=== PATIENT | female | born 2000 | race Caucasian/White ===

== ENCOUNTER 2018-09-11 15:50 | Emergency (ER) | payer OTHER ==
[2018-09-11 16:01] VITALS: O2SAT 99
--- NOTE | 2018-09-11 16:20 | ED PDOC ---
HPI: General Adult Time Seen by Provider: 09/11/18 16:09 Chief Complaint (Nursing): Abdominal Pain Chief Complaint (Provider): with abdominal pain History Per: Patient Additional Complaint(s): 18-year-old female, (1 ) presents with right-sided abdominal pain that started yesterday. Patient describes the pain as sharp, shooting and intermittent. She denies any dysuria or hematuria, no vaginal bleeding, fever or chills. OB: Dr. Marsha Boyd Past Medical History Reviewed: Historical Data, Nursing Documentation, Vital Signs Vital Signs: Last Vital Signs Temp 98.2 F 09/11/18 15:59 Pulse 112 H 09/11/18 15:59 Resp 18 09/11/18 15:59 BP 122/68 09/11/18 15:59 Pulse Ox 99 09/11/18 15:59 - Medical History PMH: Asthma - Surgical History Surgical History: No Surg Hx - Family History Family History: States: No Known Family Hx - Living Arrangements Living Arrangements: With Family - Social History Current smoker - smoking cessation education provided: No Alcohol: None Drugs: Denies - Home Medications Home Medications: Ambulatory Orders Medication Instructions Recorded No Known Home Med 06/21/18 - Allergies Allergies/Adverse Reactions: Allergies Allergy/AdvReac Type Severity Reaction Status Date / Time No Known Allergies Allergy Verified 06/21/18 17:13 Review of Systems ROS Statement: Except As Marked, All Systems Reviewed And Found Negative Constitutional: Negative for: Fever, Chills, Weakness Cardiovascular: Negative for: Chest Pain Respiratory: Negative for: Shortness of Breath Gastrointestinal: Positive for: Abdominal Pain. Negative for: Nausea, Vomiting, Diarrhea, Constipation Genitourinary Female: Positive for: Pelvic Pain. Negative for: Dysuria, Vaginal Discharge, Vaginal Bleeding Physical Exam - Reviewed Nursing Documentation Reviewed: Yes Vital Signs Reviewed: Yes - Physical Exam Appears: Positive for: Well, Non-toxic, No Acute Distress Skin: Positive for: Normal Color. Negative for: Rash Eye Exam: Positive for: Normal appearance Cardiovascular/Chest: Positive for: Regular Rate, Rhythm Respiratory: Positive for: Normal Breath Sounds. Negative for: Respiratory Distress Gastrointestinal/Abdominal: Positive for: Other (gravid abdomen with mild tenderness to right lower quadrant, no rebound, no guarding) Back: Negative for: L CVA Tenderness, R CVA Tenderness Extremity: Positive for: Normal ROM Neurologic/Psych: Positive for: Alert, Oriented - Laboratory Results Urine dip results: Negative for: Leukocyte Esterase, Blood, Nitrate, Ketones, Glucose, Bilirubin, Protein - ECG O2 Sat by Pulse Oximetry: 99 Pulse Ox Interpretation: Normal - Other Rad OB US X-Ray: Read By Radiologist X-Ray Interpretation: see below Medical Decision Making Medical Decision Makin -year-old female with abdominal pain Plan: PO tylenol OB US Urine dip US: UTERUS: Single live intrauterine fetus in breech presentation. BPD: 3.8 cm corresponding to 17 weeks and 3 days of gestational age. HC: 13.6 cm corresponding to 17 weeks and 0 days of gestational age. AC: 10.9 cm corresponding to 16 weeks and 6 days of gestational age. FL: 2.5 cm corresponding to 17 weeks and 5 days of gestational age. Heart rate: 154 bpm. age (Ultrasound estimated): 17 weeks and 2 days. Rachael-gestational hemorrhage: None. Date of delivery (Ultrasound estimated) : 02/17/2019. Placenta is fundal and posterior. CERVIX: Measures 5.3 cm. Long and closed. No cervical abnormality seen. RIGHT OVARY: Not visualized. LEFT OVARY: Not visualized. FREE FLUID: None. OTHER FINDINGS: None. IMPRESSION: Single intrauterine fetus in breech presentation with mean gestational age of 17 weeks and 2 days. The estimated date of delivery by ultrasound is 02/17/2019. Please note this is a limited OB ultrasound performed on an emergent basis. Dedicated anatomic survey is recommended. Patient is aware of diagnostic testing results, all questions answered. She was instructed to follow-up with her OB and is aware she can return to ED any time if acutely worse. Disposition - Clinical Impression Clinical Impression: Abdominal pain during - Patient ED Disposition Is Patient to be Admitted: No Counseled Patient/Family Regarding: Studies Performed, Diagnosis, Need For Followup - Disposition Referrals: Manpreet Boyd MD [Staff Provider] - Disposition: Routine/Home Disposition Time: 19:09 Condition: STABLE Additional Instructions: Drink plenty of fluids and take Tylenol as needed. Follow-up with your OB in 2-3 days or return any time if acutely worse. Instructions: - [facility] [employer] Forms: [facility] ([place]istani)
--- NOTE | 2018-09-11 19:03 | US ---
Date of service: 09/11/2018 PROCEDURE: OB Pelvic Ultrasound HISTORY: 17 weeks, right side pain COMPARISON: None available. FINDINGS: UTERUS: Single live intrauterine fetus in breech presentation. BPD: 3.8 cm corresponding to 17 weeks and 3 days of gestational age. HC: 13.6 cm corresponding to 17 weeks and 0 days of gestational age. AC: 10.9 cm corresponding to 16 weeks and 6 days of gestational age. FL: 2.5 cm corresponding to 17 weeks and 5 days of gestational age. Heart rate: 154 bpm. age (Ultrasound estimated): 17 weeks and 2 days Rachael-gestational hemorrhage: None. Date of delivery (Ultrasound estimated) : 02/17/2019 Placenta is fundal and posterior. CERVIX: Measures 5.3 cm. Long and closed. No cervical abnormality seen. RIGHT OVARY: Not visualized. LEFT OVARY: Not visualized. FREE FLUID: None. OTHER FINDINGS: None. IMPRESSION: Single intrauterine fetus in breech presentation with mean gestational age of 17 weeks and 2 days. The estimated date of delivery by ultrasound is 02/17/2019. Please note this is a limited OB ultrasound performed on an emergent basis. Dedicated anatomic survey is recommended.
[2018-09-11 19:29] VITALS: BP 107/71; PULSE 90; RESP 17; TEMP 98.4
== END 2018-09-11 19:28 | disposition home or self-care (01) ==
LOC: H.ER 15:50
DX: O26.892 Other specified pregnancy related conditions, second trimester (principal); Z3A.17 17 weeks gestation of pregnancy

== ENCOUNTER 2019-02-15 05:08 | Inpatient (IN) | payer MEDICAID ==
[2019-02-15 06:34] VITALS: BMI 30.1
[2019-02-15] MEDS ORDERED: Lactated Ringer's 1,000 ML IV ONE (08:19)
[2019-02-15] MEDS ORDERED: OXYTOCIN/0.9 % NS 20 UNIT/1,000 ML BAG IV SCH ×3 (08:30→15:45)
[2019-02-15] MEDS ORDERED: Oxytocin 30 UNIT in NS 500 ml 30 UNITS/500 ML BAG IV ONE ×2 (08:30→15:59)
[2019-02-15] MEDS ORDERED: Penicillin G 5 Million Unit Vial IVPB ONE (09:13)
[2019-02-15] MEDS: Lactated Ringer's 1,000 ML IV SCH ×2 (09:15→16:15)
[2019-02-15 09:37] LABS: BASO % 0.1 % (0.0-2.0); EOS # 0.1 K/uL (0.0-0.7); EOS % 1.3 % (0.0-4.0); HEMOGLOBIN 11.7 g/dL (12.0-16.0); LYMPH # 2.1 K/uL (1.0-4.3); LYMPH % 18.3 % (20.0-40.0); MEAN CORPUSCULAR HEMOGLOBIN 30.2 pg (27.0-31.0); MEAN CORPUSCULAR HGB CONC 32.8 g/dL (33.0-37.0); MEAN PLATELET VOLUME 7.7 fl (7.2-11.7); MONO # 0.9 K/uL (0.0-0.8); MONO % 7.7 % (0.0-10.0); NEUT # 8.2 K/uL (1.8-7.0); NEUT % 72.6 % (50.0-75.0); NRBC % 0.1 % (0.0-0.0); RBC 3.89 Mil/uL (3.80-5.20); RED CELL DISTRIBUTION WIDTH 13.2 % (11.5-14.5); WHITE BLOOD COUNT 11.3 K/uL (4.8-10.8)
[2019-02-15] MEDS ORDERED: Fentanyl/Bupivacaine HCl 250 ML EPI ONE (11:23)
--- NOTE | 2019-02-15 14:26 | OBADHP ---
Datetime: 02/15/2019 14:03 Admit Comment, IP Provider: term uneventful course admitted with prom and having contractions for delivery Pelvic Type - PN: Adequate Extremities - PN: Normal Abdomen - PN: Normal Back - PN: Normal Breast - PN: Normal Lungs - PN: Normal Heart - PN: Normal Thyroid - PN: Normal Neurologic - PN: Normal HEENT - PN: Normal General - PN: Normal Presentation-Admit: Vertex FHR - Baseline A Provider: 150 Amniotic Fluid Color, Provider: Bloody Membranes, Provider: Ruptured Contraction Comments Provider: irregular Gestation - Est Wks by US: 39+ Vital Signs Provider: Reviewed IP Chief Complaint: Uterine contractions NICHD Variability Prov Fetus A: Moderate 6-25bpm NICHD Accel Fetus A IP Provider: [id number] NICHD Decel Fetus A IP Provider: None Dilatation, Provider: 1 Effacement, Provider: 50 Station, Provider: -1 Genitourinary Exam: Normal DTRs - PN: Normal EGA AdmitDate IP: 39.1 IP Adm Impression: Term, intrauterine ; Ruptured Membranes IP Admit Plan: Admit to unit; Initiate labor protocol
[2019-02-15] MEDS ORDERED: Bupivacaine HCl 0.5% PF (30 ml) Inj ONE (17:48)
[2019-02-16] MEDS ORDERED: Lidocaine 1% Inj (20ml) ONE (02:19)
[2019-02-16] MEDS: Oxytocin 30 UNIT in NS 500 ml 30 UNITS/500 ML BAG IV ONE ×2 (03:34→04:13)
[2019-02-16] MEDS ORDERED: Oxycodone/Acetaminophen 5/325 mg Tab PO PRN ×2 (04:08→05:59)
[2019-02-16] MEDS ORDERED: Acetaminophen-Codeine 300/30 mg Tab PO PRN ×2 (04:08→05:59)
[2019-02-16] MEDS ORDERED: Benzocaine/Menthol SPRAY TOP PRN ×2 (04:08→05:59)
--- NOTE | 2019-02-16 04:16 | OBDS ---
DELIVERY PERSONNEL Anesthesiologist: Toro Lofton MD MATERNAL INFORMATION Delivery Anesthesia: Epidural Estimated Blood Loss (ml): 250ml Maternal Complications: None Provider Comments: delivery of live baby boy 9/9 clear fluid cord with [address] over median episiotomy and repair LABOR SUMMARY EDC: 02/21/2019 00:00 No. Babies in Womb: 0 Labor Anesthesia: Epidural LABOR INFORMATION Reason for Induction: Not Applicable Onset of Labor: 02/15/2019 03:45 Oxytocin: Augmentation Group B Beta Strep: Positive Steroids Given: None Reason Steroids Not Administered: Not Applicable MEMBRANES Membranes Rupture Method: Spontaneous Rupture of Membranes: 02/15/2019 03:45 Amniotic Fluid Color: Clear Amniotic Fluid Amount: Small Amniotic Fluid Odor: Normal VAGINAL DELIVERY Episiotomy: Median Laceration Repair Note: repair of median episiotomy with 2-0chromic no extensions Sponge Count Correct: Yes Sharps Count Correct: Yes Count Comment: correct PRESENTATION/POSITION BABY A Presentation: Cephalic
[2019-02-17 05:59] LABS: BASO # 0.1 K/uL (0.0-0.2); BASO % 0.4 % (0.0-2.0); EOS # 0.3 K/uL (0.0-0.7); HEMOGLOBIN 10.3 g/dL (12.0-16.0); LYMPH % 19.9 % (20.0-40.0); MEAN CORPUSCULAR HEMOGLOBIN 30.6 pg (27.0-31.0); MEAN CORPUSCULAR HGB CONC 33.6 g/dL (33.0-37.0); MEAN PLATELET VOLUME 7.5 fl (7.2-11.7); MONO # 1.2 K/uL (0.0-0.8); MONO % 8.2 % (0.0-10.0); NEUT # 10.3 K/uL (1.8-7.0); NEUT % 69.5 % (50.0-75.0); NRBC % 0.1 % (0.0-0.0); RBC 3.37 Mil/uL (3.80-5.20); RED CELL DISTRIBUTION WIDTH 12.7 % (11.5-14.5); WHITE BLOOD COUNT 14.9 K/uL (4.8-10.8)
--- NOTE | 2019-02-17 08:36 | OBPPN ---
Datetime: 02/17/2019 08:33 PP Pain Prov: Within normal limits PP Pain Prov comment: Denies SOB, chest or leg pains PP Nausea Prov: Denies PP Flatus Prov: Yes PP Nausea Prov comment: voiding well PP Breasts Prov: Normal PP Lungs Prov: Normal PP Abdomen/Uterus Prov: Abnormal PP Lochia Prov: Normal PP Vulva/Perineum Prov: Abnormal PP CVA Tenderness Prov: Normal PP Extremities Prov: Normal PP C/S Incision Prov: Not Applicable PP Progress Prov: Normal PP Comments Phys Exam Prov: breast not engorged, NT, breast feeding; Abd soft ND, fundus firm below the umb. Nt; Perineum repaired; ext no calf tenderness. PP Impression Prov: Normal progression PP Plan Prov: Continue present management PP Progress Note Prov: Continue PP care OOB and ambulation. IP PP Procedures: None Vital Signs Provider PP: Reviewed Datetime: 02/16/2019 07:55 PP BM Prov: No PP Heart Prov: Normal
--- NOTE | 2019-02-17 20:29 | OBDCSUM ---
Datetime: 02/17/2019 18:17 Discharged to, Provider: Home Follow up at, Provider: Dr. Isbell Disch Instr Activity: Normal activity; May be up to bathroom; May be up for meals; May Shower Disch Instr Diet: Regular Discharge Diagnosis, Provider: Term Delivered Discharge Time: 02/17/2019 20:15 Follow up in weeks, Provider: in 5 to 6 weeks Disch Referrals: None Disch Activity Restrictions: No lifting; No sexual activity; Nothing in vagina - Puhi, tampon s, douche
--- NOTE | 2019-02-17 20:29 | OBPPN ---
Datetime: 02/17/2019 20:21 PP Pain Prov: Within normal limits PP Nausea Prov: Denies PP Flatus Prov: Yes PP Breasts Prov: Not Done PP Heart Prov: Not Done PP Lungs Prov: Not Done PP Abdomen/Uterus Prov: Not Done PP Lochia Prov: Not Done PP Vulva/Perineum Prov: Not Done PP CVA Tenderness Prov: Not Done PP Extremities Prov: Not Done PP C/S Incision Prov: Not Applicable PP Progress Prov: Normal PP Impression Prov: Normal progression PP Plan Prov: Discharge PP Progress Note Prov: OB Hospitalist Notified that Dr Boss's patient wants to leave A; S/P PLAN: will dischagre home Dr Tafoya notified Follwo up in 6w
[2019-02-18 01:12] VITALS: BP 125/77; PULSE 83; RESP 20; TEMP 98.7; O2SAT 96
== END 2019-02-17 21:00 | disposition home or self-care (01) | DRG 560 ==
LOC: H.EROB2 05:08 → H.L&D 08:19 → H.OB/GYN 02-16 05:45
PROVIDERS: ADMIT Specialist; ATTEND Specialist
PROC: 10E0XZZ Delivery of Products of Conception, External Approach (ICD-10-PCS; principal; 2019-02-16)
PROC: 0W8NXZZ Division of Female Perineum, External Approach (ICD-10-PCS; 2019-02-16)
DX: O99.824 Streptococcus B carrier state complicating childbirth (principal); Z37.0 Single live birth; Z3A.39 39 weeks gestation of pregnancy